=== PATIENT | female | born 1970 | race Caucasian/White ===

== ENCOUNTER 2016-10-03 10:21 | Emergency (ER) | payer OTHER ==
[~2016-10-03] VITALS: Ht 170.2 cm; Wt 73.1 kg
[~2016-10-03 10:21] MED LIST: EFF50 PO; ELET40TA PO; PROM25TA PO
[2016-10-03 10:33] VITALS: TEMP 36.7; Ht 170.2 cm; Wt 73.1 kg
[2016-10-03] MEDS ORDERED: KETOROLAC TROMETHAMINE 30 MG/ML VIAL IV STA (11:12)
[2016-10-03] MEDS ORDERED: SODIUM CHLORIDE 0.9% 1000ML 1,000 ML IV STA (11:12)
[2016-10-03] MEDS ORDERED: PROCHLORPERAZINE 5 MG/ML 2 ML VIAL IV STA (11:12)
[2016-10-03 11:39] LABS: BASO % 0.2 %; BASO ABS # 0.03 K/uL (0-0.2); COMPLETE YES; EOS % 0.8 %; HEMATOCRIT 39.7 % (37-47); IG% 0.2 %; LYMPH ABS # 1.16 K/uL (1.2-3.4); MEAN CELL VOLUME 85.7 fL (80-100); MEAN CORPUSCULAR HEMOGLOBIN 31.1 pg (25-34); MEAN CORPUSCULAR HGB CONC 36.3 g/dl (32-36); MEAN PLATELET VOLUME 8.9 fL (7.4-10.4); MONO % 5.3 %; NEUT % 84.5 %; PLATELET COUNT 219 K/uL (130-400); RED BLOOD COUNT 4.63 M/uL (4.2-5.4); WHITE BLOOD COUNT 12.88 K/uL (4.8-10.8)
--- NOTE | 2016-10-03 11:45 | EMERGENCY ROOM VISIT NOTE ---
History First contact with patient: 11:02 Chief Complaint: VOMITING Stated Complaint: KRAMER, NAUSEA, VOMITING, WEAK Nursing Triage Summary: Pt states she's been vomiting every hour since 8pm last night, headache "all around". Hx migraines "this is beyond migraine". Denies head injury, denies diarrhea. History of Present Illness The patient is a 45 year old female who presents to the Emergency Room with complaints of nausea with vomiting that started suddenly last night at 8 PM. She states she has been unable to keep anything down since that time. She states that since the vomiting started she has developed a severe headache. She has a history of migraines and states this is similar, but worse than usual. Describes as throbbing, 01/25. Associated photophobia. She states the vomiting started several hours before her headache. Patient states she spent most of the day outside yesterday mowing the grass and doing yard work, and think she did not keep up with hydration very well. She also ate a salad with pork on it for lunch. She cannot think of any other unusual foods, any known undercooked meat or poultry. She denies fevers/chills, vision changes, neck pain, chest pain, shortness of breath, abdominal pain, back pain, diarrhea or constipation, blood stools, or urinary complaints. Review of Systems A complete 10 point review of systems was reviewed with the patient with pertinent positives and negatives as per history of present illness. All else were negative. Social History Smoking Status: Former Smoker Current/Historical Medications Scheduled Ondasetron Odt (Zofran Odt), 4 MG SL Q6H Allergies Coded Allergies: No Known Allergies (Verified , 02/26/03) Physical Exam Vital Signs Date Time Temp Pulse Resp B/P (MAP) Pulse Ox O2 Delivery O2 Flow Rate FiO2 10/03/16 15:20 67 20 114/64 98 Room Air 10/03/16 13:41 86 16 117/74 97 Room Air 10/03/16 10:33 36.7 83 16 130/79 97 Room Air Physical Exam CONSTITUTIONAL: No acute distress. Nontoxic appearing but does appear uncomfortable and dry heaving. Moderately dehydrated. Alert and oriented X 4 with normal affect. HEENT: Normocephalic, atraumatic. Pupils equal, round and reactive to light, EOMI. TMs normal. Pharynx normal. Dry mucous membranes. NECK: Supple, full active range of motion without discomfort. RESPIRATORY: Clear to auscultation bilaterally with no wheezing, crackles, rhonchi or stridor. Equal expansion bilaterally. CARDIOVASCULAR: Regular rate and rhythm with no murmurs, rubs or gallops. Normal peripheral perfusion. No edema. GASTROINTESTINAL: Soft, nontender, nondistended. Bowel sounds present in all quadrants. MUSCULOSKELETAL: Full range of motion of all joints without discomfort. INTEGUMENTARY: No rash or other significant dermatologic conditions noted. NEUROLOGIC: Cranial nerves II-XII grossly intact. No focal neurologic deficits noted. Normal motor, normal sensation, normal coordination. Medical Decision & Procedures Laboratory Results 10/03/16 11:10 Red Blood Count 4.63, Mean Corpuscular Volume 85.7, Mean Corpuscular Hemoglobin 31.1, Mean Corpuscular Hemoglobin Concent 36.3, Mean Platelet Volume 8.9, Neutrophils (%) (Auto) 84.5, Lymphocytes (%) (Auto) 9.0, Monocytes (%) (Auto) 5.3, Eosinophils (%) (Auto) 0.8, Basophils (%) (Auto) 0.2, Neutrophils # (Auto) 10.89, Lymphocytes # (Auto) 1.16, Monocytes # (Auto) 0.68, Eosinophils # (Auto) 0.10, Basophils # (Auto) 0.03 10/03/16 11:10 Test 10/03/16 11:10 10/03/16 13:30 White Blood Count 12.88 K/uL (4.8-10.8) Red Blood Count 4.63 M/uL (4.2-5.4) Hemoglobin 14.4 g/dL (12.0-16.0) Hematocrit 39.7 % (37-47) Mean Corpuscular Volume 85.7 fL (80-100) Mean Corpuscular Hemoglobin 31.1 pg (25-34) Mean Corpuscular Hemoglobin Concent 36.3 g/dl (32-36) Platelet Count 219 K/uL (130-400) Mean Platelet Volume 8.9 fL (7.4-10.4) Neutrophils (%) (Auto) 84.5 % Lymphocytes (%) (Auto) 9.0 % Monocytes (%) (Auto) 5.3 % Eosinophils (%) (Auto) 0.8 % Basophils (%) (Auto) 0.2 % Neutrophils # (Auto) 10.89 K/uL (1.4-6.5) Lymphocytes # (Auto) 1.16 K/uL (1.2-3.4) Monocytes # (Auto) 0.68 K/uL (0.11-0.59) Eosinophils # (Auto) 0.10 K/uL (0-0.5) Basophils # (Auto) 0.03 K/uL (0-0.2) RDW Standard Deviation 39.0 fL (36.4-46.3) RDW Coefficient of Variation 12.5 % (11.5-14.5) Immature Granulocyte % (Auto) 0.2 % Immature Granulocyte # (Auto) 0.02 K/uL (0.00-0.02) Anion Gap 10.0 mmol/L (3-11) Est Creatinine Clear Calc Drug Dose 108.5 ml/min Estimated GFR () 124.7 Estimated GFR (Non- 107.6 BUN/Creatinine Ratio 13.6 (10-20) Calcium Level 9.3 mg/dl (8.5-10.1) Total Bilirubin 1.1 mg/dl (0.2-1) Direct Bilirubin 0.2 mg/dl (0-0.2) Aspartate Amino Transf (AST/SGOT) 18 U/L (15-37) Alanine Aminotransferase (ALT/SGPT) 26 U/L (12-78) Alkaline Phosphatase 57 U/L (45-117) Total Protein 8.2 gm/dl (6.4-8.2) Albumin 4.5 gm/dl (3.4-5.0) Lipase 86 U/L (73-393) Urine Color YELLOW Urine Appearance CLEAR (CLEAR) Urine pH 8.5 (4.5-7.5) Urine Specific [place] 1.013 (1.000-1.030) Urine Protein NEG (NEG) Urine Glucose (UA) NEG (NEG) Urine Ketones 1+ (NEG) Urine Occult Blood NEG (NEG) Urine Nitrite NEG (NEG) Urine Bilirubin NEG (NEG) Urine Urobilinogen NEG (NEG) Urine Leukocyte Esterase NEG (NEG) Urine Test NEG (NEG) Medications Administered Medications (Trade) Dose Ordered Sig/Jesica Route Start Time Stop Time Status Last Admin Dose Admin Prochlorperazine Edisylate (Compazine Inj) 10 mg NOW STAT IV 10/03/16 11:12 10/03/16 11:15 DC 10/03/16 11:22 10 MG Sodium Chloride 1,000 ml @ 999 mls/hr Q1H1M STAT IV 10/03/16 11:12 10/03/16 12:12 DC 10/03/16 11:17 999 MLS/HR Ketorolac Tromethamine (Toradol Inj) 15 mg NOW STAT IV 10/03/16 11:12 10/03/16 11:15 DC 10/03/16 11:22 15 MG Dextrose/Sodium Chloride 0 ml @ 999 mls/hr Q0M STAT IV 10/03/16 12:31 10/03/16 12:35 DC 10/03/16 12:45 999 MLS/HR Medical Decision CC: Patient presenting with complaint of vomiting and headache Interpretation of Labs: Mild leukocytosis, no anemia, no significant electrolyte abnormalities, normal renal function, normal liver function, normal lipase. No UTI. Differential Diagnosis: Includes, but not limited to gastroenteritis, gastritis , dehydration, electrolyte imbalance, heat stroke, viral illness, food poisoning , migraine, tension headache Medication Reconciliation: I attest that I have personally reviewed the patient' s current medication list. Vital signs review: I reviewed the patient's vital signs and interpret them as follows: T: Afebrile; BP: Normotensive; HR: Within normal limits; RR: Within normal limits; Pulse Ox: Within normal limits on room air. Blood pressure screening: The patient was found to have normal blood pressure on screening and does not require follow-up for repeat blood pressure check. Summary: Patient was evaluated at bedside, history of physical exam performed. Patient is alert and oriented, no acute distress but appears uncomfortable, dry heaving and complaining of a headache. She does appear moderately dehydrated on exam. Neurologic exam is normal with no focal deficits. Orders were placed at bedside for labs, UA, IV fluid bolus for hydration, Compazine and Toradol to treat migraine as well as severe nausea. Patient discussed with Dr. Loyola, who agrees with my assessment and plan. Labs reviewed, mild leukocytosis and otherwise unremarkable as above. No UTI Patient reassessed multiple times throughout ED stay, she had full resolution of her migraine headache, nausea fully resolved and she is tolerating PO well, and she is urinating well. She feels comfortable with plan for discharge home. She was instructed to follow up with her PCP, as well as given return criteria should her symptoms return/worsen. She verbalized understanding. Patient discharged home in stable condition and ambulatory. Impression Primary Impression: Vomiting Additional Impressions: Dehydration Migraine Departure Information Dispostion Home / Self-Care Condition GOOD Prescriptions Ondasetron Odt (ZOFRAN ODT) 4 Mg Tab 4 MG SL Q6H for Nausea for 2 Days, #8 TAB Prov: Zina Ring CRNP 10/03/16 Referrals Dejuan Patel M.D. (PCP) Patient Instructions ED Dehydration, ED Nausea Vomiting, [facility] Additional Instructions You have been treated in the Emergency Department today for Vomiting and Dehydration. Laboratory results have ruled out any emergent reasons for further evaluation or admission. It is ESSENTIAL that you maintain adequate hydration with oral fluids! Some suggestions include: - Water is the IDEAL replacement for lost fluids. You should initially sip at the water to help facilitate increased intestinal absorption rate and to decrease the possibility of nausea/vomiting. - Carbohydrate/Electrolyte-Containing Drinks (i.e. Gatorade, Powerade, Pedialyte). All of these are good choices, but it is important to remember that all of these drinks contain a high concentration of sugar. - Popsicles, ice chips, and fruit juices are all other options. - My FAVORITE dehydration remedy is to mix a 1:1 solution of bottled Gatorade with bottled water. This dilution allows for a palatable flavor with added benefit of a reduction in the amount of sugar consumption. Avoid prolonged periods of time in the sun/heat, and increase your fluid intake when you are working in the heat to avoid heat stroke and dehydration. As with all Emergency Department visits, you should follow-up with your Primary Care Provider in 2-3 days for reevaluation. Return to the Emergency Department if your current symptoms worsen despite treatment course outlined above, or if you develop any of the following symptoms : increased thirst, weakness, dizziness, palpitations, confusion, sluggishness, fainting, inability to sweat, or decreased urine output. Problem Qualifiers Primary Impression: Vomiting Vomiting type: unspecified Vomiting Intractability: non-intractable Nausea presence: with nausea Qualified Codes: R11.2 - Nausea with vomiting, unspecified Additional Impressions: Migraine Migraine type: unspecified Status migrainosus presence: without status migrainosus Intractability: not intractable Qualified Codes: G43.909 - Migraine, unspecified, not intractable, without status migrainosus
[2016-10-03 11:58] LABS: BUN/CREATININE RATIO 13.6 (10-20); CALCIUM 9.3 mg/dl (8.5-10.1); CREATININE 0.63 mg/dl (0.60-1.20); POTASSIUM 3.5 mmol/L (3.5-5.1)
[2016-10-03] MEDS ORDERED: D5W AND 1/2NSS 1,000 ML IV STA (12:31)
[2016-10-03 13:56] LABS: URINE APPEARANCE CLEAR (CLEAR); URINE BILIRUBIN NEG (NEG); URINE COLOR YELLOW; URINE NITRITE NEG (NEG); URINE PH 8.5 (4.5-7.5); URINE SPECIFIC GRAVITY 1.013 (1.000-1.030); UROBILINOGEN NEG (NEG)
[2016-10-03 14:10] LABS: MANUAL MICROSCOPIC REQUIRED? NO; REVIEW REQ? NO
[2016-10-03] MEDS ORDERED: ONDA4TAB10 SL (14:58)
[2016-10-03 15:20] VITALS: BP 114/64; PULSE 67; O2SAT 98
== END 2016-10-03 15:23 | disposition home or self-care (01) ==
LOC: C.EDB 10:22
DX: R11.10 Vomiting, unspecified (principal); E86.0 Dehydration; G43.909 Migraine, unspecified, not intractable, without status migrainosus; Z87.891 Personal history of nicotine dependence

== ENCOUNTER 2016-10-17 21:34 | Emergency (ER) | payer OTHER ==
[~2016-10-17] VITALS: Ht 170.2 cm; Wt 75.6 kg
[2016-10-17 21:42] VITALS: TEMP 36.7; Ht 170.2 cm; Wt 75.6 kg
[2016-10-17] MEDS ORDERED: ONDANSETRON INJ 2 MG/ML 2 ML VIAL IV PRN (22:30)
[2016-10-17] MEDS ORDERED: MoRPHine SULFATE 10 MG/ML CARP/VIAL IV PRN (22:30)
[2016-10-17 22:53] LABS: HEMATOCRIT 36.5 % (37-47); MEAN CELL VOLUME 87.3 fL (80-100); MEAN CORPUSCULAR HEMOGLOBIN 31.6 pg (25-34); MEAN CORPUSCULAR HGB CONC 36.2 g/dl (32-36); PLATELET COUNT 191 K/uL (130-400); RED BLOOD COUNT 4.18 M/uL (4.2-5.4); WHITE BLOOD COUNT 8.52 K/uL (4.8-10.8)
[2016-10-17 23:24] LABS: BUN/CREATININE RATIO 21.4 (10-20); CALCIUM 9.3 mg/dl (8.5-10.1); CREATININE 0.69 mg/dl (0.60-1.20); POTASSIUM 3.7 mmol/L (3.5-5.1)
--- NOTE | 2016-10-17 23:56 | EMERGENCY ROOM VISIT NOTE ---
History Report prepared by Vikash: Eloisa Harper Under the Supervision of: Dr. Vahe Hopkins M.D. First contact with patient: 22:20 Chief Complaint: ABDOMINAL PAIN Stated Complaint: ABDOMINAL PAIN, HERNIA History of Present Illness The patient is a 45 year old female who presents to the Emergency Room with complaints of persistent abdominal pain starting 1500 today. She was at a picnic when she started to have extreme discomfort above her belly button. She suspects she might have a hernia. She can feel a small bulge on her abdomen. She has had this for 1 year and followed up with her PCP who was not concerned. She has been moving furniture all this week. She had a small BM today around 1800. She usually has difficulty having bowel movements. She was unable to push very hard because of the pain today. She does not take a stool softener regularly. She denies any fever, chills, urinary symptoms, or leg pain. She is currently on her period. Source of History: patient Onset: 1500 today Position: abdomen Quality: other (hernia pain) Timing: other (persistent) Associated Symptoms: No fevers, No chills, No urinary symptoms Note: Pt denies leg pain. Review of Systems All systems have been listed, reviewed, and are negative other than those previously mentioned. Please see Additional Medical History Sheet. Past Medical & Surgical Surgical Problems: (1) History of section Family History Cancer Social History Smoking Status: Never Smoker Alcohol Use: none Housing Status: lives with family Occupation Status: employed Current/Historical Medications No Active Prescriptions or Reported Meds Allergies Coded Allergies: No Known Allergies (Verified , 10/17/16) Physical Exam Vital Signs Date Time Temp Pulse Resp B/P (MAP) Pulse Ox O2 Delivery O2 Flow Rate FiO2 10/18/16 00:57 73 16 125/64 97 10/18/16 00:20 78 16 119/70 98 Room Air 10/17/16 21:42 36.7 91 22 127/81 100 Room Air Physical Exam GENERAL: Patient awake, alert, oriented x 3. Patient seems to be in moderate to severe distress. Patient follows commands. Patient does not appear toxic. Patient is adequately hydrated and well-nourished. SKIN: No erythema, pallor, cyanosis or rash HEENT: Normal head, pupils equal, reactive to light and accommodation. LUNGS: Clear to auscultation. No wheezes, no rales, no rhonchi. HEART: No murmurs. No gallops. No rubs ABDOMEN: Tenderness just above the umbilicus, questionable hernia palpated there. No masses, no rebound, no hepatomegaly or splenomegaly. EXTREMITIES: No signs of trauma or infection. NEUROLOGIC: Cranial nerves II-XII within normal limits. No gross motor sensory function deficits. Medical Decision & Procedures ER Provider Diagnostic Interpretation: Radiology results as stated below per my review and [facility] radiologist interpretation: US Abdomen: Fat containing ventral hernia. Correlate for incarceration/strangulation. Laboratory Results 10/17/16 22:40 10/17/16 22:40 Test 10/17/16 22:40 Red Blood Count 4.18 M/uL (4.2-5.4) Mean Corpuscular Volume 87.3 fL (80-100) Mean Corpuscular Hemoglobin 31.6 pg (25-34) Mean Corpuscular Hemoglobin Concent 36.2 g/dl (32-36) RDW Standard Deviation 40.7 fL (36.4-46.3) RDW Coefficient of Variation 12.8 % (11.5-14.5) Mean Platelet Volume 9.0 fL (7.4-10.4) Urine Color YELLOW Urine Appearance CLEAR (CLEAR) Urine pH 7.0 (4.5-7.5) Urine Specific [place] 1.014 (1.000-1.030) Urine Protein NEG (NEG) Urine Glucose (UA) NEG (NEG) Urine Ketones NEG (NEG) Urine Occult Blood 1+ (NEG) Urine Nitrite NEG (NEG) Urine Bilirubin NEG (NEG) Urine Urobilinogen NEG (NEG) Urine Leukocyte Esterase NEG (NEG) Urine WBC (Auto) 1-5 /hpf (0-5) Urine RBC (Auto) 0-4 /hpf (0-4) Urine Hyaline Casts (Auto) 1-5 /lpf (0-5) Urine Epithelial Cells (Auto) 10-20 /lpf (0-5) Urine Bacteria (Auto) NEG (NEG) Urine Test NEG (NEG) Anion Gap 9.0 mmol/L (3-11) Est Creatinine Clear Calc Drug Dose 108.1 ml/min Estimated GFR () 121.0 Estimated GFR (Non- 104.4 BUN/Creatinine Ratio 21.4 (10-20) Calcium Level 9.3 mg/dl (8.5-10.1) Chemistry Specimen Hemolysis Laboratory results as stated above per my review. Medications Administered Medications (Trade) Dose Ordered Sig/Jesica Route Start Time Stop Time Status Last Admin Dose Admin Morphine Sulfate (MoRPHine SULFATE INJ) 6 mg Q1H PRN IV 10/17/16 22:30 10/31/16 22:29 10/17/16 22:58 6 MG Ondansetron HCl (Zofran Inj) 4 mg Q1HWA PRN IV 10/17/16 22:30 11/16/16 22:29 10/17/16 22:58 4 MG ED Course 2225: Past medical records reviewed. The patient was evaluated in room B6. A complete history and physical examination was performed. 0: Zofran Inj 4 mg IV, Morphine Sulfate 6 mg IV. 0045: Upon reevaluation, the patient appeared to have improvement of her symptoms. I discussed today's findings with her. She verbalized agreement of the treatment plan. She was discharged home. Medical Decision Nurses notes reviewed. Medical history sheet reviewed. Differential diagnosis includes but is not limited to: bowel obstruction, constipation, umbilical hernia. Clinically the patient has a small periumbilical hernia. This was confirmed by ultrasound. The patient has a small amount of blood in her urine but she is at the end of her menses. Her white count is not elevated. The patient does not have incarceration. The patient felt significantly better after IV pain medication. The patient will take Naprosyn at home as needed for pain. She is to follow-up with a family physician. She may require surgical correction if pain persists. The patient was encouraged to avoid any heavy lifting. Medication Reconciliation: I attest that I have personally reviewed the patient' s current medication list. Blood pressure Screening: Patient was found to have normal blood pressure on screening and does not require follow up. Impression Primary Impression: Periumbilical hernia Scribe Attestation The scribe's documentation has been prepared under my direction and personally reviewed by me in its entirety. I confirm that the note above accurately reflects all work, treatment, procedures, and medical decision making performed by me. Departure Information Dispostion Home / Self-Care Prescriptions No Active Prescriptions or Reported Meds Referrals No Doctor, Assigned (PCP) Patient Instructions Hernia, [facility] Additional Instructions No heavy lifting. 400/600 mg of ibuprofen every 6 hours as needed for pain. Follow-up with your family physician.
[2016-10-18 00:35] LABS: URINE APPEARANCE CLEAR (CLEAR); URINE BILIRUBIN NEG (NEG); URINE COLOR YELLOW; URINE NITRITE NEG (NEG); URINE SPECIFIC GRAVITY 1.014 (1.000-1.030); UROBILINOGEN NEG (NEG); ZZUR CULT IF INDIC CLEAN CATCH NO
[2016-10-18 00:36] LABS: MANUAL MICROSCOPIC REQUIRED? NO; REVIEW REQ? NO
[2016-10-18 00:57] VITALS: BP 125/64; PULSE 73; O2SAT 97
--- NOTE | 2016-10-18 11:09 | DIAGNOSTIC IMAGING REPORT ---
ULTRASOUND THE ABDOMEN FOR HERNIA CLINICAL HISTORY: 46 years year-old Female presenting with abdominal pain beginning afternoon of 10/17/2016, palpable periumbilical bulge, clinical concern for bowel obstruction, constipation or umbilical hernia. TECHNIQUE: Real-time grayscale ultrasound images of the umbilicus were obtained. COMPARISON STUDY: None. FINDINGS: Apparent 1.2 x 0.7 cm defect in the anterior peritoneum containing hypoechoic herniated intra-abdominal contents, most consistent with fat. The hernia sac does not contain fluid or convincing evidence of bowel. No evidence of fluid-filled distended bowel to suggest obstruction. No peritoneal free fluid in the visualized portion of the abdomen. IMPRESSION: 1. Small periumbilical hernia likely fat containing. Electronically signed by: Maurice Caraballo 10/18/2016 7:39 AM Dictated Date/Time: 10/18/2016 7:33 AM
== END 2016-10-18 00:59 | disposition home or self-care (01) ==
LOC: C.EDB 21:35
DX: K42.9 Umbilical hernia without obstruction or gangrene (principal)

== ENCOUNTER 2017-07-19 13:39 | Emergency (ER) | payer OTHER ==
[~2017-07-19] VITALS: Ht 170.2 cm; Wt 79.0 kg
[2017-07-19 13:49] VITALS: TEMP 36.4; Ht 170.2 cm; Wt 79.0 kg
[2017-07-19] MEDS ORDERED: METOCLOPRAMIDE HCL INJ 5 MG/ML 2 ML VIAL IV STA (14:09)
[2017-07-19] MEDS ORDERED: SODIUM CHLORIDE 0.9% 1000ML 1,000 ML IV STA (14:09)
[2017-07-19] MEDS ORDERED: KETOROLAC TROMETHAMINE 30 MG/ML VIAL IV STA (14:09)
[2017-07-19] MEDS ORDERED: DiphenhydrAMINE HCL 50 MG/ML VIAL IV STA (14:09)
--- NOTE | 2017-07-19 14:11 | EMERGENCY ROOM VISIT NOTE ---
History Report prepared by Vikash: Holland Hallman Under the Supervision of: Dr. Kristian Recinos M.D. First contact with patient: 14:01 Chief Complaint: HEADACHE Stated Complaint: HEADACHE, RUNNY NOSE, DEHYDRATION History of Present Illness The patient is a 46 year old white female with an umbilical hernia and migraines who presents to the ED with a cc of constant beginning 5 days ago. Positive nausea, dry heaving, runny nose with clear drainage. Negative vomiting , sore throat, cough, urinary symptoms, bowel movement problems. She states that she has been going through a very heavy menstrual cycle, and then she started to get a headache. The patient says that she has been using Tylenol for the headache, but the headache has persisted. She notes that the headache is all over her head, and she does not think it is a migraine today. The patient says that she woke up around 0100 this morning with nausea, and has been dry heaving a lot today. She notes that she has been trying to get some fluids in but she thinks that she is dehydrated. The patient states that she called her doctor, and was told to come here. She adds that she feels exhausted. She notes no daily medication use, or any recent surgeries. The patient states that she got her flu shot. She works at a retirement. Source of History: patient Onset: 5 days ago Position: head Symptom Intensity: all over head Quality: ache Timing: constant Associated Symptoms: + nausea, + fatigue, No sorethroat, No cough, No vomiting (but has been dry heaving), No urinary symptoms Note: Positive runny nose with clear drainage. Negative bowel movement problems. Review of Systems See HPI for pertinent positives and negatives. A total of ten systems were reviewed and were otherwise negative. Past Medical & Surgical Surgical Problems: (1) History of section Family History Cancer Social History Smoking Status: Never Smoker Alcohol Use: none Housing Status: lives with family Occupation Status: employed Current/Historical Medications Scheduled PRN Ondansetron Hcl (Zofran), 4 MG PO Q8H PRN for Nausea Allergies Coded Allergies: No Known Allergies (Verified , 10/17/16) Physical Exam Vital Signs Date Time Temp Pulse Resp B/P (MAP) Pulse Ox O2 Delivery O2 Flow Rate FiO2 07/19/17 15:28 84 18 139/89 99 Room Air 07/19/17 14:33 95 07/19/17 13:49 36.4 90 18 137/82 96 Room Air Physical Exam GENERAL: Awake, alert, ill-appearing, NAD HENT: Normocephalic, atraumatic. EYES: Normal conjunctiva. Sclera non-icteric. NECK: Supple. No nuchal rigidity. FROM. RESPIRATORY: CTAB, no rhonchi, wheezing, crackles CARDIAC: RRR, no MRG ABDOMEN: Soft, NTND, BS+ MSK: No chest wall TTP, no LE edema NEURO: GCS 15, CN 2-12 intact, moves all 4s on command SKIN: No rash or jaundice noted. Medical Decision & Procedures Laboratory Results 07/19/17 14:14 Red Blood Count 4.28, Mean Corpuscular Volume 85.5, Mean Corpuscular Hemoglobin 30.8, Mean Corpuscular Hemoglobin Concent 36.1, Mean Platelet Volume 8.7, Neutrophils (%) (Auto) 86.2, Lymphocytes (%) (Auto) 9.2, Monocytes (%) (Auto) 3.4, Eosinophils (%) (Auto) 0.7, Basophils (%) (Auto) 0.2, Neutrophils # (Auto) 8.49, Lymphocytes # (Auto) 0.91, Monocytes # (Auto) 0.34, Eosinophils # (Auto) 0.07, Basophils # (Auto) 0.02 07/19/17 14:14 Test 07/19/17 14:10 07/19/17 14:14 07/19/17 14:35 Urine Color YELLOW Urine Appearance CLEAR (CLEAR) Urine pH 7.0 (4.5-7.5) Urine Specific [place] 1.020 (1.000-1.030) Urine Protein NEG (NEG) Urine Glucose (UA) NEG (NEG) Urine Ketones NEG (NEG) Urine Occult Blood 3+ (NEG) Urine Nitrite NEG (NEG) Urine Bilirubin NEG (NEG) Urine Urobilinogen NEG (NEG) Urine Leukocyte Esterase NEG (NEG) Urine WBC (Auto) 1-5 /hpf (0-5) Urine RBC (Auto) >30 /hpf (0-4) Urine Hyaline Casts (Auto) 0 /lpf (0-5) Urine Epithelial Cells (Auto) 10-20 /lpf (0-5) Urine Bacteria (Auto) NEG (NEG) Urine Test NEG (NEG) White Blood Count 9.86 K/uL (4.8-10.8) Red Blood Count 4.28 M/uL (4.2-5.4) Hemoglobin 13.2 g/dL (12.0-16.0) Hematocrit 36.6 % (37-47) Mean Corpuscular Volume 85.5 fL (80-100) Mean Corpuscular Hemoglobin 30.8 pg (25-34) Mean Corpuscular Hemoglobin Concent 36.1 g/dl (32-36) Platelet Count 188 K/uL (130-400) Mean Platelet Volume 8.7 fL (7.4-10.4) Neutrophils (%) (Auto) 86.2 % Lymphocytes (%) (Auto) 9.2 % Monocytes (%) (Auto) 3.4 % Eosinophils (%) (Auto) 0.7 % Basophils (%) (Auto) 0.2 % Neutrophils # (Auto) 8.49 K/uL (1.4-6.5) Lymphocytes # (Auto) 0.91 K/uL (1.2-3.4) Monocytes # (Auto) 0.34 K/uL (0.11-0.59) Eosinophils # (Auto) 0.07 K/uL (0-0.5) Basophils # (Auto) 0.02 K/uL (0-0.2) RDW Standard Deviation 40.0 fL (36.4-46.3) RDW Coefficient of Variation 12.9 % (11.5-14.5) Immature Granulocyte % (Auto) 0.3 % Immature Granulocyte # (Auto) 0.03 K/uL (0.00-0.02) Anion Gap 7.0 mmol/L (3-11) Est Creatinine Clear Calc Drug Dose 144.8 ml/min Estimated GFR () 131.9 Estimated GFR (Non- 113.8 BUN/Creatinine Ratio 20.0 (10-20) Calcium Level 9.2 mg/dl (8.5-10.1) Total Bilirubin 0.8 mg/dl (0.2-1) Direct Bilirubin 0.1 mg/dl (0-0.2) Aspartate Amino Transf (AST/SGOT) 19 U/L (15-37) Alanine Aminotransferase (ALT/SGPT) 28 U/L (12-78) Alkaline Phosphatase 62 U/L (45-117) Total Protein 8.3 gm/dl (6.4-8.2) Albumin 4.0 gm/dl (3.4-5.0) Lipase 75 U/L (73-393) Influenza Type A Antigen Neg for Influ A (NEG) Influenza Type B Antigen Neg for Influ B (NEG) Laboratory results reviewed by me Medications Administered Medications (Trade) Dose Ordered Sig/Jesica Route Start Time Stop Time Status Last Admin Dose Admin Sodium Chloride 1,000 ml @ 999 mls/hr Q1H1M STAT IV 07/19/17 14:09 07/19/17 15:09 DC 07/19/17 14:31 999 MLS/HR Metoclopramide HCl (Reglan Inj) 10 mg NOW STAT IV 07/19/17 14:09 07/19/17 14:11 DC 07/19/17 14:31 10 MG Ketorolac Tromethamine (Toradol Inj) 30 mg NOW STAT IV 07/19/17 14:09 07/19/17 14:11 DC 07/19/17 14:31 30 MG Diphenhydramine HCl (Benadryl Inj) 25 mg NOW STAT IV 07/19/17 14:09 07/19/17 14:11 DC 07/19/17 14:30 25 MG Prochlorperazine Edisylate (Compazine Inj) 10 mg NOW STAT IV 07/19/17 15:26 07/19/17 15:32 DC 07/19/17 15:38 10 MG Magnesium Sulfate (Magnesium Sulfate) 1 gm NOW STAT IV 07/19/17 15:26 07/19/17 15:32 DC 07/19/17 15:38 1 GM ED Course 1402: The patient was evaluated in room A9B. A complete history and physical exam was performed. 1526: I reevaluated the patient and her headache is better but she is still nauseated. 1557: I reevaluated the patient and she is feeling better. Discussed results and discharge instructions: she verbalized understanding and agreement. The patient is ready for discharge. Medical Decision Nursing notes reviewed. Ancillary studies and prior records reviewed. The patient is a 46 year old white female with an umbilical hernia who presents to the ED with a cc of constant beginning 5 days ago. Positive nausea, dry heaving, runny nose with clear drainage. Negative vomiting, sore throat, cough, urinary symptoms, bowel movement problems. Differential diagnosis: Etiologies such as viral syndrome, otitis, pharyngitis, pneumonia, influenza, meningitis, urinary tract infection, sepsis, bacteremia, as well as others were entertained. Patient was seen and evaluated the bedside. Patient has had symptoms for approximately 5 days associated headache and menstrual period. Patient is otherwise mildly ill appearing; however she does not have any focal neuro deficits, no signs of meningismus, no cough, no abdominal pain. Patient did have blood work completed along with flu swab, IV fluids, and headache cocktail were administered. Patient's blood work was fairly unremarkable. UA was negative for infection. Urine test negative. Patient's flu was negative. Upon reassessment the patient is feeling improved. Do not believe the patient requires any further imaging or testing at this time. Patient has much improved. She was able to tolerate p.o. Patient was told to follow-up with her PCP. Patient was given strict follow-up, discharge, and return precautions. All questions were answered. Patient was deemed suitable for outpatient follow-up at this time. Patient agreed with the plan of care and was safely discharged home. Medication Reconcilliation Current Medication List: was personally reviewed by me Blood Pressure Screening Patient's blood pressure: Elevated blood pressure Blood pressure disposition: Elevated BP felt to be situational Impression Primary Impression: Headache Scribe Attestation The scribe's documentation has been prepared under my direction and personally reviewed by me in its entirety. I confirm that the note above accurately reflects all work, treatment, procedures, and medical decision making performed by me. Departure Information Dispostion Home / Self-Care Prescriptions Ondansetron Hcl (ZOFRAN) 4 Mg Tab 4 MG PO Q8H Y for Nausea, #12 TAB Prov: Kristian Recinos M.D. 07/19/17 Referrals Dejuan Patel M.D. (PCP) Patient Instructions ED Flu, My [facility] Additional Instructions Please return to the emergency department if you have worsening or recurrent symptoms not amenable to at-home treatment. Please call for a follow-up appointment with her primary care physician. Please take your medications as prescribed. If you have other concerns and/or complaints please feel free to also call your primary care physician's office or return the ED for further evaluation, management, and treatment. You may take 600 mg Ibuprofen every 6 hours as needed for pain with food for no more than 2 consecutive days. You may take tylenol 1000 mg every 6 hours as needed for pain. You may take motrin and tylenol separately or at the same time. Take your medications as prescribed. Consider slowly advancing her diet. Start with clear liquids and then advance to things like broths, soups, and light pastas. You have been examined and treated today on an emergency basis only. This is not a substitute for, or an effort to provide, complete comprehensive medical care. It is impossible to recognize and treat all injuries or illnesses in a single emergency department visit. It is therefore important that you follow up closely with [facility], your PCP, and/or your specialist(s). Call as soon as possible for an appointment. Thank you for your time and consideration. I look forward to speaking with you again soon. Please don't hesitate to call us if you have any questions. Problem Qualifiers Primary Impression: Headache Headache type: unspecified Headache chronicity pattern: chronic headache Intractability: not intractable Qualified Codes: R51 - Headache
[2017-07-19] MEDS ORDERED: ONDA4TAB46 PO (14:27)
[2017-07-19 14:38] LABS: BASO % 0.2 %; BASO ABS # 0.02 K/uL (0-0.2); EOS % 0.7 %; EOS ABS # 0.07 K/uL (0-0.5); HEMATOCRIT 36.6 % (37-47); HEMOGLOBIN 13.2 g/dL (12.0-16.0); IG# 0.03 K/uL (0.00-0.02); LYMPH % 9.2 %; LYMPH ABS # 0.91 K/uL (1.2-3.4); MEAN CELL VOLUME 85.5 fL (80-100); MEAN CORPUSCULAR HEMOGLOBIN 30.8 pg (25-34); MEAN CORPUSCULAR HGB CONC 36.1 g/dl (32-36); MEAN PLATELET VOLUME 8.7 fL (7.4-10.4); MONO % 3.4 %; MONO ABS # 0.34 K/uL (0.11-0.59); NEUT % 86.2 %; NEUT ABS # 8.49 K/uL (1.4-6.5); PLATELET COUNT 188 K/uL (130-400); RED CELL DISTRIBUTION WIDTH CV 12.9 % (11.5-14.5); WHITE BLOOD COUNT 9.86 K/uL (4.8-10.8)
[2017-07-19 15:00] LABS: CALCIUM 9.2 mg/dl (8.5-10.1); CREATININE 0.52 mg/dl (0.60-1.20); POTASSIUM 3.7 mmol/L (3.5-5.1)
[2017-07-19 15:03] LABS: TOTAL PROTEIN 8.3 gm/dl (6.4-8.2)
[2017-07-19 15:15] LABS: INFLUENZA B ANTIGEN Neg for Influ B (NEG)
[2017-07-19] MEDS ORDERED: PROCHLORPERAZINE 5 MG/ML 2 ML VIAL IV STA (15:26)
[2017-07-19] MEDS ORDERED: MAGNESIUM SULFATE 1GM / D5W 1 GM BAG IV STA (15:26)
[2017-07-19 16:34] VITALS: BP 136/81; PULSE 89; O2SAT 96
== END 2017-07-19 16:39 | disposition home or self-care (01) ==
LOC: C.EDB 13:41 → C.EDA 16:39
DX: R51 Headache (principal); Z80.9 Family history of malignant neoplasm, unspecified

== ENCOUNTER 2019-11-09 05:27 | Observation (INO) ==
--- NOTE | 2019-10-12 14:38 | PAT Medication Instructions ---
Medication Instructions Date of Service October 12, 2019 Home Medications acetaminophen [Tylenol Extra Strength] 1,000 mg PO Q6H PRN docusate sodium [Stool Softener] 50 mg PO QAM escitalopram oxalate [Lexapro] 5 mg PO HS loratadine [Claritin] 10 mg PO QAM DO NOT take the morning of surgery loratadine [Claritin] 10 mg PO QAM docusate sodium [Stool Softener] 50 mg PO QAM Take morning of surgery With a small sip of water, OTHERWISE NOTHING TO EAT OR DRINK AFTER MIDNIGHT: acetaminophen [Tylenol Extra Strength] 1,000 mg PO Q6H PRN (okay to take up to 4 hours prior to surgery if needed) Take evening before surgery acetaminophen [Tylenol Extra Strength] 1,000 mg PO Q6H PRN (if needed) escitalopram oxalate [Lexapro] 5 mg PO HS Other Notes If you have any questions please call us at [phone] or [phone] or [phone] or [phone]
--- NOTE | 2019-10-15 11:23 | Anesthesiology Consultation ---
Date of Service October 15, 2019 Assessment & Plan (1) Encounter for pre-operative examination: COVID Status: As of 10/14 assessment, patient denies travel to endemic area, known exposure/sick contacts, or symptoms of COVID19. Patient instructed to follow strict social distancing guidelines, wear a mask in public and avoid travel for 14 days prior to surgery. Preoperative COVID19 testing to be completed prior to surgery. Patient made aware to self-isolate as much as possible between COVID testing and surgery. Chart Review Chart Review: Acceptable Risk for Surgery and Patient seen in Pre Admission Testing Teaching & Discussion Instructed NPO after midnight before surgery, except medications with 15 cc of water. Medication instructions provided according to the PAT guidelines. History Surgery Operation Date: 11/09/19 07:00 Proposed Procedures p Exam Under Anesthesia, Total Laparoscopic Hysterectomy, Bilateral Salpingectomy, Reagan Culdoplasty, Cystoscopy - Beatriz Ag MD Height/Weight Height: 5 ft 6 in Weight: 84.4 kg Allergies Allergy/AdvReac Type Severity Reaction Status Date / Time No Known Allergies Allergy Unknown Verified 10/12/19 08:23 Medications Home Medications Medication Instructions Recorded Confirmed Last Taken acetaminophen [Tylenol Extra 1,000 mg PO Q6H PRN 05/13/19 10/12/19 05/13/19 08:00 Strength] docusate sodium [Stool Softener] 50 mg PO QAM 10/12/19 10/12/19 Unknown escitalopram oxalate [Lexapro] 5 mg PO HS 10/12/19 10/12/19 Unknown loratadine [Claritin] 10 mg PO QAM 10/12/19 10/12/19 Unknown Past Medical History Medical History Anxiety Seasonal allergies Umbilical hernia Exercise / Class Metabolic Activity II 4-5 Yardwork/Stairs/Walk up hill (Denies CP or SOB with 1 FOS) Past Surgical History Surgical History Hx of section x2 Hx of dilation and curettage x2 Hx of nasal septoplasty Hx of tubal ligation Past Anesthesia History No Hx of Anesthesia Complications and No Family Hx of Anesthesia Complications History of PONV No Hx of PONV and No Hx of Motion Sickness Social History Smoking Status: Former smoker (rarely, 1 pack per month) Do You Dip or Chew Tobacco: No Smoking End Date: 2015 Hx Alcohol Use: No Hx Substance Use: No substance use type: does not use Review of Systems Pt denies any recent chest pain, shortness of breath, palpitations, cough, fever or URI. Physical Exam Vital Signs BP: 112/75 P: 78bpm SPO2: 96% RA T: 98.1 F R: 16 ENMT Mouth: + dental restorations (crowns on back teeth); no chipped teeth and no loose teeth Thyromental Distance: > or= 3.5 Finger Breadths (3.5) Mallampati Class: I Neck normal visual inspection; neck extension not limited Respiratory normal respiratory effort Auscultation: lungs clear to auscultation bilaterally Cardiovascular Rate/Rhythm: regular rate and regular rhythm Heart Sounds: no murmur Extremities: no edema Testing Laboratory Results 10/15/19 11:30 PT 10.7 Seconds (9.0-12.0) 10/15/19 11:30 INR 1.0 (0.9-1.1) 10/15/19 11:30 APTT 24.7 Seconds (21.0-31.0) 10/15/19 11:30 Urine Color Yellow 10/15/19 11:30 Urine Appearance Clear (Clear) 10/15/19 11:30 Urine pH 6.0 (4.5-7.5) 10/15/19 11:30 Ur Specific [place] 1.009 (1.000-1.030) 10/15/19 11:30 Urine Protein Negative (Negative) 10/15/19 11:30 Urine Glucose (UA) Negative (Negative) 10/15/19 11:30 Urine Ketones Negative (Negative) 10/15/19 11:30 Urine Nitrite Negative (Negative) 10/15/19 11:30 Ur Leukocyte Esterase Negative (Negative) 10/15/19 11:30 Urine RBC 0-4 /hpf (0-4) 10/15/19 11:30 Urine WBC 0-5 /hpf (0-5) 10/15/19 11:30 Ur Epithelial Cells 10-20 /lpf (0-5) H 10/15/19 11:30 Blood Type A Negative 10/15/19 11:30 Antibody Screen NEGATIVE 10/15/19 11:30 Electrocardiogram Date: 05/13/19 Findings: + ST @ (113bpm) Possible LAE. NSTWA. *Pt was being seen in the ED for panic attack. HR at PAT 78bpm. Chest X-Ray Date: 05/13/19 Findings: + NAD
[2019-10-15 13:28] LABS: Basophils # (auto) 0.03 K/uL (0-0.2); Basophils % (auto) 0.4 %; Eosinophils # (auto) 0.25 K/uL (0-0.5); Eosinophils % (auto) 3.6 %; Hematocrit (blood only) 38.2 % (37-47); Hemoglobin 13.1 g/dL (12.0-16.0); Immature Granulocytes # (auto) 0.02 K/uL (0.00-0.02); Immature Granulocytes % (auto) 0.3 %; Lymphocytes # (auto) 1.38 K/uL (1.2-3.4); Lymphocytes % (auto) 19.9 %; Mean Corpuscular Hemoglobin 30.2 pg (25-34); Mean Corpuscular Hgb Conc 34.3 g/dL (32-36); Mean Platelet Volume 9.3 fL (7.4-10.4); Monocytes # (auto) 0.46 K/uL (0.11-0.59); Monocytes % (auto) 6.6 %; Neutrophils # (auto) 4.81 K/uL (1.4-6.5); Neutrophils % (auto) 69.2 %; Platelet Count 181 K/uL (130-400); RDW Coefficient of Variation 13.2 % (11.5-14.5); RDW Standard Deviation 42.9 fL (36.4-46.3); Red Blood Count 4.34 M/uL (4.2-5.4); White Blood Count 6.95 K/uL (4.8-10.8)
[2019-10-15 13:31] LABS: Appearance Urine Clear (Clear); Bilirubin Urine Negative (Negative); Blood Urine 3+ (Negative); Color Urine Yellow; Glucose Urine UA Negative (Negative); Ketones Urine Negative (Negative); Leukocyte Esterase Urine Negative (Negative); Nitrite Urine Negative (Negative); Protein Urine Negative (Negative); Specific Gravity Urine 1.009 (1.000-1.030); Urobilinogen Urine Negative (Negative)
[2019-10-15 13:38] LABS: Partial Thromboplastin Ratio 0.9; Partial Thromboplastin Time 24.7 Seconds (21.0-31.0); Prothrombin Time 10.7 Seconds (9.0-12.0)
[2019-10-15 14:12] LABS: Amorphous Sediment Urine Present (None Prsent); Bacteria Urine Negative (Negative); RBC Urine 0-4 /hpf (0-4); WBC Urine 0-5 /hpf (0-5)
[2019-11-09] MEDS ORDERED: LR 15ML/HR IV SCH (06:00)
[2019-11-09] MEDS ORDERED: LACTATED RINGER'S 1,000 ML IV SCH (06:00)
[2019-11-09] MEDS ORDERED: CEFAZOLIN 2000MG 2,000 MG/15 ML SYR IV SCH (06:00)
[2019-11-09] MEDS ORDERED: LIDOCAINE HCL 2% 2 ML VIAL/AMP(20MG/ML) INFIL ONE (06:24)
[2019-11-09] MEDS ORDERED: fentaNYL citrate 100 MCG/2 ML VIAL ONE ×2 (06:24→07:12)
[2019-11-09] MEDS ORDERED: ONDANSETRON INJ 2 MG/ML 2 ML VIAL ONE (06:24)
[2019-11-09] MEDS ORDERED: MIDAZOLAM HCL 1 MG/ML 2ML VIAL ONE (06:24)
[2019-11-09] MEDS ORDERED: DEXAMETHASONE SOD INJ 4 MG/ML VIAL ONE (06:24)
[2019-11-09] MEDS ORDERED: PROPOFOL IV EMULSION 10 MG/ML 20 ML VIAL IV ONE (06:24)
[2019-11-09] MEDS ORDERED: ROCURONIUM BROMIDE 10 MG/ML 5 ML VIAL IV ONE ×2 (06:25→08:09)
[2019-11-09] MEDS ORDERED: ePHEDrine sulfate 50 MG/ML AMP IV PRN (06:37)
[2019-11-09] MEDS ORDERED: ATROPINE SULFATE 0.1 MG/ML 10ML SYR IV PRN (06:37)
[2019-11-09] MEDS ORDERED: ONDANSETRON INJ 2 MG/ML 2 ML VIAL IV PRN ×2 (06:37→10:10)
[2019-11-09] MEDS ORDERED: SCOPOLAMINE 1.5 MG TDSY TD ONE ×2 (06:38)
--- NOTE | 2019-11-09 06:48 | History & Physical Bridge Note ---
Date of Service November 09, 2019 History & Physical Bridge Note I have examined the patient, reviewed the History & Physical and in the interval since the performance of the History & Physical I have noted the following changes of clinical significance: no changes noted She had 80 mg of Kenolog on her left knee on 10/29
--- NOTE | 2019-11-09 06:56 | History & Physical Bridge Note ---
Date of Service November 09, 2019 History & Physical Bridge Note I have examined the patient, reviewed the History & Physical and in the interval since the performance of the History & Physical I have noted the following changes of clinical significance: no changes noted
[2019-11-09] MEDS ORDERED: CEFAZOLIN 2000MG 2,000 MG/15 ML SYR IV ONE (06:57)
[2019-11-09] MEDS ORDERED: BUPIVACAINE 0.5 % 5 MG/1 ML MPF 30ML VIAL ONE (07:19)
[2019-11-09] MEDS ORDERED: LIDOCAINE HCL 1% 20 ML VIAL ONE (07:19)
[2019-11-09] MEDS ORDERED: METHYLENE BLUE 0.5% 10 ML VIAL ONE (07:20)
[2019-11-09] MEDS ORDERED: MINERAL OIL LIGHT 10 ML BTL ONE (07:20)
[2019-11-09] MEDS ORDERED: HYDROmorphone INJ 2 MG/ML SYR/VIAL ONE (07:34)
[2019-11-09] MEDS ORDERED: ePHEDrine sulfate 50 MG/ML AMP ONE ×2 (08:03)
[2019-11-09] MEDS ORDERED: GLYCOPYRROLATE 0.2 MG/ML VIAL ONE (09:51)
[2019-11-09] MEDS ORDERED: NEOSTIGMINE METHYLSULFATE 5 MG/5 ML SYR ONE (09:51)
--- NOTE | 2019-11-09 10:08 | Post Operative Brief Note ---
Immediate Post Op Note v1 Date of Surgery November 09, 2019 Pre & Post Diagnosis Operation Date: 11/09/19 07:00 Pre-Op Diagnosis: Endometrial Intraepithelial Hyperplasia; ventral hernia Post-Op Diagnosis: Endometrial Intraepithelial Hyperplasia; ventral hernia I identified the patient and participated in the time-out.: Yes Procedure Operation Date: 11/09/19 07:00 Actual Procedures p Exam Under Anesthesia, Total Laparoscopic Hysterectomy, Bilateral Salpingectomy, Cystoscopy - Beatriz Ag MD s Open Ventral Hernia Repair - Nalini Molina MD Surgeon Beatriz Ag MD Sample Mounter Dr [place] Estimated Blood Loss 150 Findings Consistent with Post-Op Diagnosis Drains Snow Catheter (18fr snow catheter placed by surgeon at beginning of procedure, snow demonstrates clear yellow urine.) Anesthesia Type General Complications none Disposition Accompanied Patient To Recovery: Yes Disposition: PCU
--- NOTE | 2019-11-09 10:09 | Post Operative Brief Note ---
Immediate Post Op Note v1 Date of Surgery November 09, 2019 Pre & Post Diagnosis Operation Date: 11/09/19 07:00 Pre-Op Diagnosis: Endometrial Intraepithelial Hyperplasia; ventral hernia Post-Op Diagnosis: Endometrial Intraepithelial Hyperplasia; ventral hernia I identified the patient and participated in the time-out.: Yes Procedure Operation Date: 11/09/19 07:00 Actual Procedures p Exam Under Anesthesia, Total Laparoscopic Hysterectomy, Bilateral Salpingectomy, Reagan Culdoplasty, Cystoscopy - Beatriz Matias MD s Open Ventral Hernia Repair - Nalini Molina MD Surgeon Nalini Molina MD Fitness Studies Teacher beatriz Matias MD Estimated Blood Loss 150 Findings Consistent with Post-Op Diagnosis ventral hernia size 1x1cm, Fluids 1500ml Drains Snow Catheter (18fr snow catheter placed by surgeon at beginning of procedure, snow demonstrates clear yellow urine.) Anesthesia Type General Complications none Disposition Accompanied Patient To Recovery: Yes Disposition: Recovery Room Overlapping Procedure I was immediately available: during the entire case.
[2019-11-09] MEDS ORDERED: MAGNESIUM HYDROXIDE SUSP 30 ML UDC PO PRN (10:10)
[2019-11-09] MEDS ORDERED: SIMETHICONE 80 MG CHEW PO PRN (10:10)
[2019-11-09] MEDS ORDERED: ACETAMINOPHEN 325 MG TAB PO PRN (10:10)
[2019-11-09] MEDS ORDERED: PROMETHAZINE HCL 12.5 MG in SODIUM CHLORIDE 0.9% 50 ML IV PRN (10:10)
[2019-11-09] MEDS ORDERED: bisacodyL 10 MG SUPP PR PRN (10:10)
[2019-11-09] MEDS ORDERED: IBUPROFEN 600 MG TAB PO PRN (10:10)
[2019-11-09] MEDS ORDERED: MEPERIDINE HCL 50 MG/ML CARP IV PRN (10:10)
[2019-11-09] MEDS ORDERED: PROMETHAZINE HCL 25 MG in SODIUM CHLORIDE 0.9% 50 ML IV PRN (10:10)
[2019-11-09] MEDS ORDERED: OXYCODONE/ACETAMINOPHEN 5mg/325mg TAB PO PRN ×2 (10:10)
[2019-11-09] MEDS ORDERED: KETOROLAC 30 MG/ML VIAL IV PRN (10:10)
[2019-11-09] MEDS: fentaNYL citrate 100 MCG/2 ML VIAL IV PRN ×2 (10:48→10:58)
--- NOTE | 2019-11-09 12:31 | Operative Report (OR) ---
DATE OF OPERATION: 11/09/2019 PREOPERATIVE DIAGNOSES: Ventral hernia and endometrial intraepithelial hyperplasia. POSTOPERATIVE DIAGNOSES: Ventral hernia and endometrial intraepithelial hyperplasia. OPERATION: Open repair of ventral hernia. SURGEON: Nalini Molina MD. SIGNAL INTEGRITY ENGINEER: Beatriz Ag MD. ESTIMATED BLOOD LOSS: From ventral hernia repair only, 5 mL. FINDINGS: Ventral hernia size about 1 x 1 cm. COMPLICATIONS: None. INDICATIONS FOR THE PROCEDURE: This is a 49-year-old female who needed a hysterectomy by the OBG-YN doctor and also, patient had a ventral hernia. The patient wanted to do ventral hernia repair at the same time and I did talk to the patient about the benefit, the risk, alternate procedure. I indicated the risks may include but not limited to such as bleeding, infection, hernia recurrence. The patient understands. She signed informed consent and I answered all questions. DETAILS OF PROCEDURE: We brought the patient to the OR, put the patient in the supine position. The patient received SCD on bilateral legs to prevent DVT. Also, patient received 2 grams of Ancef IV for prophylactic antibiotic. The patient received general anesthesia without difficulty. The abdomen and pelvic area was prepped and draped in routine sterile fashion. After timeout, I injected the local anesthesia by using 1% lidocaine mixed with 0.5% Marcaine just above the umbilicus. Then, I made about a 2 cm incision just above the umbilicus and we found the patient had a small ventral hernia size about 1 x 1 cm. We reduced the hernia content, the fat tissue back to abdominal cavity and then we opened the peritoneum, put the Danika trocar in, connected to CO2 and created pneumoperitoneum. At this moment, the PEWTER CASTER surgeon took over to do their procedure. Once they finished their procedure, they called me to come back to the OR to close the ventral hernia. So, we found the ventral hernia edge and then we decided to use #1 Ethibond interruptedly to close the ventral hernia fascial layer and the hernia closed nicely, no tension. Hemostasis was obtained. Then, I used 2-0 Vicryl to close subcutaneous layer interruptedly, I used 4-0 Vicryl to close the skin in continuous running. Then, we put the dressing on. The patient tolerated the procedure well. All instrument, needle and sponge count were correct x2 at the end of the case. The patient was transferred to recovery room in stable condition. I attest to the content of the Intraoperative Record and any orders documented therein. Any exceptions are noted below. MTDD
--- NOTE | 2019-11-09 12:59 | Anesthesiology Progress Note ---
Date of Service November 09, 2019 Anesthesia Post Procedure Vital Signs Vital Signs: Temp Pulse Pulse Resp BP BP Pulse Ox 11/09/19 12:25 97.9 F 83 18 127/71 93 11/09/19 11:40 97.9 F 78 16 122/72 97 11/09/19 11:25 76 16 124/62 97 11/09/19 11:15 87 16 127/74 97 11/09/19 11:05 97.5 F L 87 15 131/69 96 11/09/19 10:55 95 H 15 133/82 100 11/09/19 10:45 76 20 136/85 94 11/09/19 10:35 96 H 16 118/81 99 11/09/19 10:29 97.3 F L 102 H 16 134/76 99 11/09/19 06:04 98.2 F 92 H 20 146/80 H 97 Pain Intensity Abdomen: Pain Intensity: 5 Transfer of Care Handoff Completed per policy Notes Mental Status: alert / awake / arousable and participated in evaluation Patient Amnestic to Procedure: Yes Nausea / Vomiting: adequately controlled Pain: adequately controlled Airway Patency, RR, SpO2: stable & adequate BP & HR: stable & adequate Hydration State: stable & adequate Anesthetic Complications: no major complications apparent and Pt Satisfied with anesthetic care
[2019-11-09] MEDS: LACTATED RINGER'S 1,000 ML IV SCH ×2 (13:07→18:11)
[2019-11-09] MEDS: MEPERIDINE HCL 25 MG/ML CARP/VIAL IV PRN ×2 (13:55→18:45)
--- NOTE | 2019-11-09 14:16 | Operative Report (OR) ---
DATE OF OPERATION: 11/09/2019 PREOPERATIVE DIAGNOSES: The patient is a 49-year-old 2, para 2-0-0-2 female with history of abnormal uterine bleeding and endometrial intraepithelial neoplasia and a ventral hernia. POSTOPERATIVE DIAGNOSES: The patient is a 49-year-old 2, para 2-0-0-2 female with history of abnormal uterine bleeding and endometrial intraepithelial neoplasia and a ventral hernia. PROCEDURE: 1) Examination under anesthesia, total laparoscopic hysterectomy, bilateral salpingectomy, cystoscopy by myself. 2) Open ventral hernia repair by Dr Jesse tariq SURGEONS: Beatriz Ag MD and Nalini Molina MD. TIRE RECAPPER: Samira Butterfield MD. ESTIMATED BLOOD LOSS: 150 mL. FLUIDS: 1100 mL of lactated Ringer. DRAINS: Kessler catheter drained 200 mL of clear urine. ANESTHESIA: General endotracheal. COMPLICATIONS: None. FINDINGS: Exam under anesthesia revealed anteverted, normal-sized uterus and a nonpalpable adnexa. Vagina with good apical support. No signs of uterine prolapse. Intraoperative findings; normal uterus, fallopian tubes and ovaries. Normal pelvic peritoneum and see dictated note from Dr. Molina for other details. DESCRIPTION OF PROCEDURE: The patient was taken to the OR where general anesthesia was given without difficulty. She was placed in dorsal lithotomy position, prepared and draped in usual sterile fashion. Dr. Molina was in the room, he started with incision on the mid abdominal skin about 4 cm above the umbilicus and then found a defect in the fascia where the hernia had occured. He placed 2 sutures on the edges of fascia and placed a 12 mm Danika trocar and attached to gas. Intraabdominal placement was confirmed with the scope. Then, gas and light was stopped, and then he stepped aside and then myself and Dr. Butterfield continued with the site safety manager part of procedure. Attention was turned to the patient's vagina where a speculum was placed. Cervix was visualized, grasped with a single tooth tenaculum. Cervical os was dilated with a uterine sound. Uterus was measured to be 8 cm and then a medium-sized VCare was placed into the uterine cavity. Its balloon was inflated with 20 mL of air and then the green cap was placed around the cervix and then its blue cap was fixed to the green cap to provide manipulation during surgery and it was locked in place, and then gloves were changed. Attention was turned to the patient's abdomen where again the light and CO2 gas were restarted. Abdomen was inspected to be normal, normal bowels and omentum, and then the patient was placed in Trendelenburg position. Uterus was manipulated in the midline and found to be normal uterus, fallopian tubes and ovaries. Fallopian tubes had Falope rings from prior tubal sterilization surgery. Pictures were taken and then 2 more trocars were placed in the right and left lower quadrants of abdomen; left side was 11 mm and the right side was 5 mm and the trocars were placed under direct visualization with the scope. The left fallopian tube was grasped with a grasper and mesosalpinx was coagulated and cut with LigaSure device and the round ligament on the left side was coagulated and cut with LigaSure device and then connected to the broad ligament and the uteroovarian ligaments were also coagulated and cut, and the rest of the broad ligament was incised. The anterior leaf of broad ligament was continued to the vesicouterine flap. It was elevated and entered with the tip of LigaSure device and it was coagulated and cut in a horizontal fashion until the right side of the broad ligament. Then uterine artery was coagulated on the left side, superior and inferior branches were coagulated and cut. Attention was turned to the right side, right fallopian tube was elevated and mesosalpinx was coagulated and cut. Tube was detached from the mesosalpinx and the right fallopian tube, broad ligament and uteroovarian ligament were also coagulated and cut with LigaSure device and the anterior leaf of broad ligament was incised, continued to the vesicouterine incision which was started from the left side. Serosa was detached and pushed back from the lower uterus and the vagina. We were able to feel the edge of the VCap at that point and then the right uterine artery was coagulated, superior and inferior branches were coagulated. Excellent hemostasis was achieved. Then, some of the fibers on the lower uterus and the cardinal ligaments were also coagulated and cut with LigaSure device. Then we were able to feel the edge of the cap from the vagina circumferentially. The tip of LigaSure was brought out, the vagina was incised circumferentially around the green cap edge and uterus was detached completely from the vagina and it was removed from the vagina with the tubes on it. A sponge in a glove was placed in the vagina to provide pneumoperitoneum during surgery. Gloves were changed. The pelvis was irrigated with warm normal saline and suctioned. The vaginal cuff was hemostatic. It was closed with an EndoStitch with dissolvable suture starting from the left corner in a continuous fashion. Lapra-Tys were placed for laparoscopic ties at the end of the suture and excellent hemostasis was achieved. The pelvis was irrigated with warm normal saline and suctioned. Pictures were taken and then attention was turned to the patient's perineum. Kessler catheter was removed. Cystoscopy was done. The bladder was intact with no sutures or bleeding and both ureteral openings were seen and they were ejecting clear urine bilaterally and then the cystoscopy was ended. The bladder was emptied. A second sterile Kessler catheter was placed into the bladder. Attention was turned to the patient's abdomen. Trocars were removed and the fascial incision on the left lower quadrant was repaired with 0 Vicryl with [id number] stitches. Skin incisions were closed with 4-[address] Molina continued with his part of procedure. He completed the hernia repair superior to the umbilicus and see his dictated note for details. He closed the skin with 4-0 Monocryl. The patient tolerated the procedure well. Sponge, lap, needle count was correct x3. She was taken out from lithotomy position, cleaned, dried and taken to recovery room in stable condition. No complications happened. I and Dr. Butterfield were present for my part of the surgery and Dr. Molina was present with me for his part of surgery. See his dictated note for details. My administration assistant was needed for uterine manipulation, retraction for tissue exposure and handling of laparoscope and laparoscopic instruments to ensure adequate visualization, gentle tissue manipulation and hemostasis. I attest to the content of the Intraoperative Record and any orders documented therein. Any exceptions are noted below. TYRA
[2019-11-09] MEDS: CHECK SCOPOLAMINE PATCH PLACEMENT SCH (15:43)
--- NOTE | 2019-11-09 18:43 | Obstetrical Progress Note ---
Date of Service November 09, 2019 Assessment & Plan Admission and Anticipated Discharge Date Admission Date: November 09, 2019 Subjective Postop check Patient is seen and examined Feels well, no complaints Pain is under control with meds No CP/ SOB/ Dizziness/ N&V/ VB/ Leg pain Not OOB yet Tolerating clears Explained about the surgery and findings Shown her pictures Vital Signs Temp Pulse Pulse Resp BP Pulse Ox 11/09/19 14:47 101 H 16 138/88 97 11/09/19 14:07 36.6 C 107 H 18 136/83 93 11/09/19 13:02 100 H 18 131/80 99 11/09/19 12:25 36.6 C 83 18 127/71 93 11/09/19 11:40 36.6 C 78 16 122/72 97 11/09/19 11:25 76 16 124/62 97 11/09/19 11:15 87 16 127/74 97 11/09/19 11:05 36.4 C L 87 15 131/69 96 11/09/19 10:55 95 H 15 133/82 100 11/09/19 10:45 76 20 136/85 94 11/09/19 10:35 96 H 16 118/81 99 11/09/19 10:29 36.3 C L 102 H 16 134/76 99 PE: General: Alert, orientedx3, NAD CVS: S1S2 RRR Lungs: CTAB Abd: soft, NT, ND, BS+, Incisions dressings C/D/I No VB Ext: NT, no edema, SCD's on AP: 49 yo female s/p EUA, TLH, BL salpingectomy, Cystoscopy , pod#0 VSS Afebrile doing well Continue to routine postop care Encourage PO intake, may ambulate D/C snow in am Results & Data ([facility]) Vital Signs (Past 12 Hours) Vital Signs Temp Pulse Pulse Resp BP Pulse Ox 11/09/19 14:47 101 H 16 138/88 97 11/09/19 14:07 36.6 C 107 H 18 136/83 93 11/09/19 13:02 100 H 18 131/80 99 11/09/19 12:25 36.6 C 83 18 127/71 93 11/09/19 11:40 36.6 C 78 16 122/72 97 07/24/20 11:25 76 16 124/62 97 11/09/19 11:15 87 16 127/74 97 11/09/19 11:05 36.4 C L 87 15 131/69 96 11/09/19 10:55 95 H 15 133/82 100 11/09/19 10:45 76 20 136/85 94 11/09/19 10:35 96 H 16 118/81 99 11/09/19 10:29 36.3 C L 102 H 16 134/76 99
[2019-11-09 20:46] LABS: Hematocrit (blood only) 33.2 % (37-47); Hemoglobin 11.7 g/dL (12.0-16.0)
[2019-11-09] MEDS ORDERED: DOCUSATE SODIUM 100 MG CAP PO SCH (21:00)
[2019-11-10] MEDS: CHECK SCOPOLAMINE PATCH PLACEMENT SCH ×2 (00:33→09:01)
[2019-11-10] MEDS: LACTATED RINGER'S 1,000 ML IV SCH (02:09)
[2019-11-10 06:01] LABS: Basophils # (auto) 0.01 K/uL (0-0.2); Basophils % (auto) 0.1 %; Eosinophils # (auto) 0.02 K/uL (0-0.5); Eosinophils % (auto) 0.2 %; Hematocrit (blood only) 35.9 % (37-47); Hemoglobin 12.2 g/dL (12.0-16.0); Immature Granulocytes # (auto) 0.03 K/uL (0.00-0.02); Immature Granulocytes % (auto) 0.3 %; Lymphocytes # (auto) 1.42 K/uL (1.2-3.4); Lymphocytes % (auto) 13.2 %; Mean Corpuscular Hemoglobin 30.3 pg (25-34); Mean Corpuscular Volume 89.1 fL (80-100); Mean Platelet Volume 8.4 fL (7.4-10.4); Monocytes # (auto) 0.66 K/uL (0.11-0.59); Monocytes % (auto) 6.2 %; Neutrophils # (auto) 8.59 K/uL (1.4-6.5); Platelet Count 159 K/uL (130-400); RDW Coefficient of Variation 13.3 % (11.5-14.5); RDW Standard Deviation 43.4 fL (36.4-46.3); Red Blood Count 4.03 M/uL (4.2-5.4); White Blood Count 10.73 K/uL (4.8-10.8)
[2019-11-10 06:35] LABS: Calcium 8.7 mg/dl (8.5-10.1); Est GFR (African American) 121.9; Est GFR (Non-African American) 105.1; Potassium 4.4 mmol/L (3.5-5.1)
--- NOTE | 2019-11-10 09:12 | Obstetrical Progress Note ---
Date of Service November 10, 2019 Assessment & Plan Admission and Anticipated Discharge Date Admission Date: November 09, 2019 Subjective Patient is seen and examined. She feels well, no complaints. Pain is under control with oral meds, took Ibuprofen only this morning Ambulating without dizziness Voiding without difficulty Tolerating regular diet with out N&V Flatus neg BM neg Bleeding is minimal No fever/ chills/ CP/ SOB/ N&V/ Leg pain Vital Signs Temp Pulse Resp BP Pulse Ox 11/10/19 03:56 37.0 C 76 16 117/76 96 11/09/19 22:59 37.1 C 84 16 115/70 94 11/10/19 11/10/19 11/09/19 Range/Units 05:49 05:49 20:25 WBC 10.73 (4.8-10.8) K/uL RBC 4.03 L (4.2-5.4) M/uL Hgb 12.2 11.7 L (12.0-16.0) g/dL Hct 35.9 L 33.2 L (37-47) % MCV 89.1 (80-100) fL MCH 30.3 (25-34) pg MCHC 34.0 (32-36) g/dL RDW Std Deviation 43.4 (36.4-46.3) fL RDW Coeff of Sung 13.3 (11.5-14.5) % Plt Count 159 (130-400) K/uL MPV 8.4 (7.4-10.4) fL Immature Gran % (Auto) 0.3 % Neut % (Auto) 80.0 % Lymph % (Auto) 13.2 % [place] % (Auto) 6.2 % Eos % (Auto) 0.2 % Baso % (Auto) 0.1 % Neut # (Auto) 8.59 H (1.4-6.5) K/uL Lymph # (Auto) 1.42 (1.2-3.4) K/uL [place] # (Auto) 0.66 H (0.11-0.59) K/uL Eos # (Auto) 0.02 (0-0.5) K/uL Baso # (Auto) 0.01 (0-0.2) K/uL Immature Gran # (Auto) 0.03 H (0.00-0.02) K/uL Sodium 142 (136-145) mmol/L Potassium 4.4 (3.5-5.1) mmol/L Chloride 108 H (98-107) mmol/L Carbon Dioxide 30 (21-32) mmol/L Anion Gap 4.0 (3-11) BUN 9 (7-18) mg/dl Creatinine 0.62 (0.6-1.2) mg/dl Est Cr Clr Drug Dosing 120.0 ml/min Est GFR ( Amer) 121.9 Est GFR (Non-Af Amer) 105.1 BUN/Creatinine Ratio 14.0 (10-20) Glucose 95 (70-99) mg/dl Calcium 8.7 (8.5-10.1) mg/dl POC Ur Test (NEG) 11/09/19 Range/Units 05:57 WBC (4.8-10.8) K/uL RBC (4.2-5.4) M/uL Hgb (12.0-16.0) g/dL Hct (37-47) % MCV (80-100) fL MCH (25-34) pg MCHC (32-36) g/dL RDW Std Deviation (36.4-46.3) fL RDW Coeff of Sung (11.5-14.5) % Plt Count (130-400) K/uL MPV (7.4-10.4) fL Immature Gran % (Auto) % Neut % (Auto) % Lymph % (Auto) % [place] % (Auto) % Eos % (Auto) % Baso % (Auto) % Neut # (Auto) (1.4-6.5) K/uL Lymph # (Auto) (1.2-3.4) K/uL [place] # (Auto) (0.11-0.59) K/uL Eos # (Auto) (0-0.5) K/uL Baso # (Auto) (0-0.2) K/uL Immature Gran # (Auto) (0.00-0.02) K/uL Sodium (136-145) mmol/L Potassium (3.5-5.1) mmol/L Chloride (98-107) mmol/L Carbon Dioxide (21-32) mmol/L Anion Gap (3-11) BUN (7-18) mg/dl Creatinine (0.6-1.2) mg/dl Est Cr Clr Drug Dosing ml/min Est GFR ( Amer) Est GFR (Non-Af Amer) BUN/Creatinine Ratio (10-20) Glucose (70-99) mg/dl Calcium (8.5-10.1) mg/dl POC Ur Test NEG (NEG) PE: General: Alert, orientedx3, NAD CVS: S1S2 RRR Lungs; CTAB Abd: soft, NT, ND, BS+, fundus firm, below Umbilicus Incision: Clean, dry, intact, covered with band aids Perineum intact, Lochia rubra minimal Ext; NT, no edema AP: 49 yo s/p EUA, TLH, BL salpingectomy, cystoscopy, pod# VSS Afebrile doing well Continue routine postop care Encourage ambulation, PO intake All questions were answered D/C home , f/u in office Results & Data ([facility]) Vital Signs (Past 12 Hours) Vital Signs Temp Pulse Resp BP Pulse Ox 11/10/19 03:56 37.0 C 76 16 117/76 96 11/09/19 22:59 37.1 C 84 16 115/70 94
--- NOTE | 2019-11-12 05:30 | Discharge Summary (DS) ---
DETAILS OF ADMISSION: The patient is a 49-year-old G2, P2-0-0-2 with history of abnormal uterine bleeding, endometrial intraepithelial neoplasia and ventral hernia. She was admitted on 11/09/2019 for scheduled surgery which was examination under anesthesia, total laparoscopic hysterectomy, bilateral salpingectomy, cystoscopy by myself and open ventral hernia repair by Dr. Wilson, general surgeon. See dictated op note for details. Her surgery was uncomplicated. On postop period, the patient was doing well. Vital signs stable, afebrile. Urine output was good. Her pain was under control with medications. Her physical exam was unremarkable. Abdomen was soft, nontender, nondistended. Incisions were dry. Extremities are nontender, no edema. On the same day in the evening, her H&H came back 11.7/33.2. On postop day #1, the patient was doing well. Vital signs stable, afebrile, ambulated without dizziness, tolerating regular diet and voided twice without difficulty and bleeding was minimal. Vital signs stable, afebrile. Her repeat H and H came back at 12.2/35.9. The patient desired to be discharged home. Discharge instructions were given. Prescriptions were written for pain. She is to be seen in the office. All questions were answered.
== END 2019-11-10 09:58 | disposition home or self-care (01) ==
LOC: ASU 05:27 → 3N 10:10 → INTOOBSV 10:10